=== PATIENT | female | born 1970 | race African-American/Black ===

== ENCOUNTER 2019-01-31 00:05 | Emergency (ER) | payer BC, OTHER ==
[~2019-01-31] VITALS: Ht 167.6 cm; Wt 81.7 kg
[~2019-01-31 00:05] MED LIST: ALLEGRA ALLERG180 MG; ATENOLOL 50MG T50 MG PO; HYDROCODONE-AP1 EAC6; MAXZIDE-25 MG1 EACH PO; METFORMIN HCL500 MG; NORCO 5-325 TA1 EACH PO; NORVASC5 MG PO; TRAMADOL 50 MG50 MG; ULTRAM 50MG TAB50 MG PO; ZOFRAN ODT4 MG PO
[2019-01-31] MEDS ORDERED: DOXYCYCLINE 10100 MG PO (02:29)
[2019-01-31] MEDS ORDERED: BUTALB-APAP-CA1 EACH PO (02:39)
[2019-01-31 03:59] VITALS: BP 138/89
== END 2019-01-31 04:00 | disposition home or self-care (01) ==
LOC: ER 00:05
DX: R51 Headache (principal); T36.4X5A Adverse effect of tetracyclines, initial encounter; I10 Essential (primary) hypertension; M54.9 Dorsalgia, unspecified; G89.29 Other chronic pain; F41.9 Anxiety disorder, unspecified; Z88.1 Allergy status to other antibiotic agents; Z98.890 Other specified postprocedural states; Y92.89 Other specified places as the place of occurrence of the external cause

== ENCOUNTER 2020-05-23 22:49 | Emergency (ER) | payer BC ==
[~2020-05-23] VITALS: Ht 167.6 cm; Wt 83.9 kg
[~2020-05-23 22:49] MED LIST changes: +BUTALB-APAP-CA1 EACH PO; +DOXYCYCLINE 10100 MG PO
[2020-05-23] MEDS ORDERED: FLONASE 0.05%50 MCG NARES (22:56)
[2020-05-23] MEDS ORDERED: OMEPRAZOLE 20 M20 M1 PO (22:57)
[2020-05-23] MEDS ORDERED: NEURONTIN100 MG PO (22:57)
[2020-05-23] MEDS ORDERED: CLINDAMYCIN 1%60 M1 (22:58)
[2020-05-23] MEDS ORDERED: SINGULAIR 10 MG10 MG PO (22:58)
[2020-05-23] MEDS ORDERED: CLOBETASOL (22:59)
[2020-05-23] MEDS ORDERED: DICLOFENAC TOP (23:00)
[2020-05-23] MEDS ORDERED: CORTIZONE-1028 GM (23:01)
[2020-05-23] MEDS ORDERED: LORCET 5-325 M1 EACH PO (23:02)
[2020-05-23] MEDS ORDERED: BIOTIN 800 MCG1 EACH (23:02)
[2020-05-23] MEDS ORDERED: HYDROXYZ (23:03)
[2020-05-23] MEDS ORDERED: VENLAFAXINE H37.5 M1 PO (23:03)
[2020-05-23] MEDS ORDERED: LORAZEPAM 0.50.5 MG PO (23:04)
[2020-05-23 23:51] VITALS: BP 119/78
[2020-05-23] MEDS ORDERED: ONDANSETRON ODT8 MG PO (23:53)
== END 2020-05-24 00:03 | disposition home or self-care (01) ==
LOC: ER 22:49
DX: R11.2 Nausea with vomiting, unspecified (principal); R51 Headache; I10 Essential (primary) hypertension; Z79.899 Other long term (current) drug therapy; Z88.1 Allergy status to other antibiotic agents; Z88.8 Allergy status to other drugs, medicaments and biological substances; Z79.2 Long term (current) use of antibiotics; Z03.818 Encounter for observation for suspected exposure to other biological agents ruled out

== ENCOUNTER 2020-10-01 05:13 | Emergency (ER) | payer BC ==
[~2020-10-01] VITALS: Ht 167.6 cm; Wt 83.9 kg
[~2020-10-01 05:13] MED LIST changes: +BIOTIN 800 MCG1 EACH; +CLINDAMYCIN 1%60 M1; +CLOBETASOL; +CORTIZONE-1028 GM; +DICLOFENAC TOP; +FLONASE 0.05%50 MCG NARES; +HYDROXYZ; +LORAZEPAM 0.50.5 MG PO; +LORCET 5-325 M1 EACH PO; +NEURONTIN100 MG PO; +OMEPRAZOLE 20 M20 M1 PO; +ONDANSETRON ODT8 MG PO; +SINGULAIR 10 MG10 MG PO; +VENLAFAXINE H37.5 M1 PO
[2020-10-01 06:14] VITALS: BP 141/86
== END 2020-10-01 06:14 | disposition home or self-care (01) ==
LOC: ER 05:13
DX: G89.18 Other acute postprocedural pain (principal); R07.89 Other chest pain; I10 Essential (primary) hypertension; Z79.899 Other long term (current) drug therapy; Z88.1 Allergy status to other antibiotic agents; Z88.8 Allergy status to other drugs, medicaments and biological substances

== ENCOUNTER 2021-11-23 15:45 | Emergency (ER) | payer BC ==
[~2021-11-23] VITALS: Ht 167.6 cm; Wt 81.7 kg
[2021-11-23] MEDS ORDERED: GUAIFEN-CODEINE10 ML PO (18:28)
[2021-11-23] MEDS ORDERED: TESSALON PERLE100 MG PO (18:28)
[2021-11-23] MEDS ORDERED: MOBIC15 MG PO (18:28)
[2021-11-23 19:30] VITALS: BP 119/87
== END 2021-11-23 19:30 | disposition home or self-care (01) ==
LOC: ER 15:45
DX: U07.1 COVID-19 (principal); I10 Essential (primary) hypertension; Z90.89 Acquired absence of other organs; Z79.891 Long term (current) use of opiate analgesic; Z79.1 Long term (current) use of non-steroidal anti-inflammatories (NSAID); Z79.899 Other long term (current) drug therapy; Z88.1 Allergy status to other antibiotic agents; Z88.8 Allergy status to other drugs, medicaments and biological substances